=== PATIENT | male | born 1960 | race Two or more races ===

== ENCOUNTER 2020-12-25 20:28 | Emergency (ER) | payer MEDICAID, OTHER ==
[~2020-12-25] VITALS: Ht 165.1 cm; Wt 81.6 kg
--- NOTE | 2020-12-25 21:48 | NUR ---
BROUGHT TO CT AND BACK
[2020-12-25 22:15] LABS: BASOPHILS % (AUTO) 0.5 % (0.0-2.0); HEMATOCRIT 41 % (39-51); HEMOGLOBIN 13.8 g/dL (13.5-17.5); LYMPHOCYTES # (AUTO) 3.5 /CMM (0.8-4.8); LYMPHOCYTES % (AUTO) 46.4 % (20.0-44.0); MEAN CORPUSCULAR HGB CONC 34 g/dl (31.0-36.0); MEAN CORPUSCULAR VOLUME 94 fL (80-96); MONOCYTES # (AUTO) 0.5 /CMM (0.1-1.30); MONOCYTES % (AUTO) 6.8 % (2.0-12.0); NEUTROPHILS # (AUTO) 3.3 /CMM (1.8-8.9); NEUTROPHILS % (AUTO) 44.3 % (43.0-81.0); PLATELET COUNT (AUTO) 262 /CMM (150-450); RED BLOOD CELL COUNT(AUTO) 4.34 MIL/uL (4.5-6.0); WHITE BLOOD COUNT (AUTO) 7.6 K/uL (4.3-11.0)
[2020-12-25 22:25] LABS: CALCIUM, SERUM 8.4 mg/dL (8.5-10.1); CREATININE 0.7 mg/dL (0.6-1.3); POTASSIUM 3.6 mmol/L (3.5-5.1)
--- NOTE | 2020-12-25 22:39 | NUR ---
Patient is resting comfortably in bed with eyes closed. Easily aroused. VSS
[2020-12-25 22:40] LABS: ALBUMIN 3.8 g/dL (3.4-5.0); BILIRUBIN,TOTAL 0.1 mg/dL (0.2-1.0); TOTAL PROTEIN, SERUM 7.2 g/dL (6.4-8.2)
--- NOTE | 2020-12-26 04:25 | NUR ---
PATIENT STATES, "CAN I GO HOME?" MD NOTIFIED OF PATIENT. PATIENT PASSED ROAD TEST. PATIENT IS AAOX4. NO SOB. NO COMPLAINTS.
--- NOTE | 2020-12-26 04:33 | NUR ---
patient is ambulatory with a steady gait.
[2020-12-26 04:34] VITALS: BP 133/77
--- NOTE | 2020-12-26 04:34 | NUR ---
Patient discharged to home in stable condition. Written and verbal after care instructions given. Patient verbalizes understanding of instruction.
== END 2020-12-26 04:35 | disposition home or self-care (01) ==
LOC: EDBD 20:31 → ER 20:31
DX: F10.129 Alcohol abuse with intoxication, unspecified (principal); R41.82 Altered mental status, unspecified; R94.31 Abnormal electrocardiogram [ECG] [EKG]; Y90.8 Blood alcohol level of 240 mg/100 ml or more
CPT/HCPCS: 36415; 70450-TC; 80048-TC; 80076-TC; 82962-TC; 85025-TC; G0480